=== PATIENT | male | born 1990 | race African-American/Black ===

== ENCOUNTER 2022-02-04 10:56 | Emergency (ER) | payer OTHER ==
[~2022-02-04] VITALS: Ht 175.3 cm; Wt 102.2 kg
--- NOTE | 2022-02-04 11:22 | PHYS DOC ---
Past History Past Surgical History: No Surgical History General Adult EDM: Chief Complaint: HEMATEMESIS/VOMITING BLOOD HPI: HPI: Patient is a 31-year-old male who presents here with nausea and vomiting this morning, with blood-streaked emesis after the first few episodes of vomiting. He denies abdominal pain. He denies chest pain, cough, dyspnea. He denies bowel habit changes, denies melena or hematochezia. He drank quite a bit of alcohol last night, he felt hung over this morning, he reports no further nausea symptoms. He reports feeling much better. He is not taking any anticoagulants. He denies any routine or heavy alcohol use. No previous history of GI bleeding. No bleeding from other sites or sources. No dizziness, weakness, syncope. No other complaints. Review of Systems: Review of Systems: Constitutional: Denies fever or chills HENT: Denies nasal congestion or sore throat Respiratory: Denies cough or shortness of breath Cardiovascular: Denies chest pain, dyspnea, palpitations or edema. Denies syncope. GI: Denies abdominal pain. Denies diarrhea, constipation, melena or hematochezia. He reports nausea and vomiting with one episode of blood-streaked emesis. : Denies urinary symptoms Musculoskeletal: Denies back pain or joint pain Integument: Denies rash or petechia Neurologic: Denies headache, focal weakness or sensory changes, denies dizziness, syncope or near syncope. Psychiatric: Denies depression or anxiety Physical Exam: PE: Constitutional: Well developed, well nourished, no acute distress, non-toxic appearance. [] HENT: Normocephalic, atraumatic, oropharynx is patent and clear. No evidence of oral pharyngeal blood, dried blood or active bleeding. Mucous membranes are moist. No evidence of facial or oral trauma. Eyes: PERRL, EOMI, conjunctiva normal, nonpale, no scleral icterus, no discharge. [] Neck: Normal range of motion, no tenderness, supple, no stridor. Trachea is midline. Cardiovascular:Heart rate regular rhythm, was 2 radial and +2 posterior tibial pulses bilaterally. Lungs & Thorax: Lungs are clear to auscultation bilateral without rales, rhonchi or wheezes. No stridor. No chest wall crepitus, no evidence of trauma, subcutaneous emphysema Abdomen: Abdomen is soft, nondistended, nontender to palpation. No palpable masses organomegaly. No CVA tenderness. No flank abdominal ecchymoses. No palpable pulsatile mass. Skin: Warm, dry, no erythema, no rash. No jaundice. No pallor. Back: No tenderness, no CVA tenderness. Full range of motion. Extremities: No tenderness, no cyanosis, no clubbing, ROM intact, no edema. No calf tenderness. Neurologic: Alert and oriented X 3, normal motor function, normal sensory function, no focal deficits noted. [] Psychologic: Affect normal, judgement normal, mood normal. Pleasant and cooperative. Current Patient Data: Vital Signs: Vital Signs Date Time Temp Pulse Resp B/P (MAP) Pulse Ox O2 Delivery O2 Flow Rate FiO2 02/04/22 11:18 98.2 87 16 138/82 (100) 98 Room Air EKG: EKG: [] Radiology/Procedures: Radiology/Procedures: [] Heart Score: C/O Chest Pain: No Risk Factors: Risk Factors: DM, Current or recent (<one month) smoker, HTN, HLP, family history of CAD, obesity. Risk Scores: Score 0 - 3: 2.5% MACE over next 6 weeks - Discharge Home Score 4 - 6: 20.3% MACE over next 6 weeks - Admit for Clinical Observation Score 7 - 10: 72.7% MACE over next 6 weeks - Early Invasive Strategies Course & Med Decision Making: Course & Med Decision Making Pertinent Labs and Imaging studies reviewed. (See chart for details) The patient is given IV fluids, IV Protonix. He is resting comfortably. He has benign, nonsurgical abdominal exam, he denies abdominal pain. No further vomiting has occurred here. He denies any active nausea. I discussed the findings, differential diagnosis and plan of care with the patient. I recommend avoidance of alcohol, NSAIDs, spicy, greasy or fried or salty foods. He should follow-up with his primary care physician. If symptoms persist, he will require GI referral and endoscopy. Information for primary care services and GI services are provided. Return precautions are given. He verbalizes understanding. Yann Disclaimer: Yann Disclaimer: This electronic medical record was generated, in whole or in part, using a voice recognition dictation system. Departure Departure: Impression: Primary Impression: Nausea and vomiting Qualified Codes: R11.2 - Nausea with vomiting, unspecified Additional Impression: History of hematemesis Disposition: HOME / SELF CARE / HOMELESS Condition: STABLE Referrals: PCP,NONI (PCP) ROSAURA SALGUERO MD Patient Instructions: Gastritis, Adult, Nausea and Vomiting Additional Instructions: Use the medicine as needed/as directed. Drink clear fluids, eat a bland diet. Avoid salty, greasy or fried foods. Avoid alcohol or NSAID medication, such as ibuprofen or Aleve. If your symptoms persist, you will need to see outpatient GI services, you will need an endoscopy. Please also follow-up with your primary care physician. Return to the ER for severe abdominal pain, chest pain, shortness of breath, continued vomiting, dehydration increased blood in vomitus or other concerns. Scripts Omeprazole (OMEPRAZOLE) 20 Mg Capsule.dr 1 CAP PO DAILY for GERD, #30 CAP 0 Refills Prov: INEZ KENNEY DO 02/04/22 Ondansetron (ONDANSETRON ODT) 4 Mg Tab.rapdis 1 TAB PO PRN Q6-8HRS for nausea and vomiting, #20 TAB Prov: INEZ KENNEY DO 02/04/22 INEZ KENNEY DO Feb 04, 2022 11:22
[2022-02-04] MEDS ORDERED: IV NORMAL SALINE 1,000ML 1,000 ML IV ONE (11:30)
[2022-02-04] MEDS ORDERED: PANTOPRAZOLE IV 40 MG VIAL. IVP ONE (11:30)
[2022-02-04 11:59] LABS: BASO % 1 % (0-3); EOS % 0 % (0-3); HEMATOCRIT 43.3 % (39.0-53.0); HEMOGLOBIN 14.6 g/dL (13.0-17.5); LYMPH # 1.3 x10^3/uL (1.0-4.8); LYMPH % 21 % (24-48); MEAN CORPUSCULAR HEMOGLOBIN 28 pg (25-35); MEAN CORPUSCULAR HGB CONC 34 g/dL (31-37); MEAN CORPUSCULAR VOLUME 82 fL (79-100); MONO # 0.3 x10^3/uL (0.0-1.1); MONO % 5 % (0-9); NEUT # 4.6 x10^3uL (1.8-7.7); NEUT % 74 % (31-73); PLATELET COUNT 299 x10^3/uL (140-400); RED BLOOD COUNT 5.26 x10^6/uL (4.30-5.70); RED CELL DISTRIBUTION WIDTH 13.8 % (11.5-14.5); WHITE BLOOD COUNT 6.2 x10^3/uL (4.0-11.0)
[2022-02-04 12:06] LABS: CALCIUM 9.2 mg/dL (8.5-10.1); GFR 105.5; POTASSIUM 4.5 mmol/L (3.5-5.1)
[2022-02-04 12:12] LABS: TOTAL BILIRUBIN 0.4 mg/dL (0.2-1.0); TOTAL PROTEIN 8.1 g/dL (6.4-8.2)
[2022-02-04 12:34] LABS: CLARITY,URINE CLEAR; COLOR,URINE YELLOW; GLUCOSE,URINE NEG (NEG); NITRITE,URINE NEG (NEG); UROBILINOGEN,URINE 0.2 mg/dL (0.2 mg/dL)
[2022-02-04 12:35] LABS: BACTERIA,URINE 0 /HPF (0-FEW); RBC,URINE 0 /HPF (0-2); SQUAMOUS EPITHELIAL CELL,UR OCC /LPF; WBC,URINE RARE /HPF (0-4)
[2022-02-04 12:45] VITALS: BP 127/77
[2022-02-04] MEDS ORDERED: OMEP20CA16 PO (12:52)
[2022-02-04] MEDS ORDERED: ONDA4TAB12 PO (12:52)
== END 2022-02-04 13:08 | disposition home or self-care (01) ==
LOC: ER 10:56
DX: R11.2 Nausea with vomiting, unspecified (principal)
CPT/HCPCS: 36415; 80053; 81001; 83690; 85025; 85610; 85730; 96361; 96374; 99283; C9113; J7030